=== PATIENT | female | born 1955 | race Caucasian/White ===

== ENCOUNTER 2021-01-18 12:56 | Emergency (ER) | payer OTHER | END 2021-01-18 14:57 | disposition home or self-care (01) | LOC: JVIRT 12:56 | DX: Z20.822 Contact with and (suspected) exposure to COVID-19 (principal) | CPT/HCPCS: C9803; G2251-GT; U0003 ==

== ENCOUNTER 2021-01-21 12:56 | Emergency (ER) | payer OTHER | END 2021-01-21 13:23 | disposition home or self-care (01) | LOC: JVIRT 12:56 | DX: Z20.822 Contact with and (suspected) exposure to COVID-19 (principal) | CPT/HCPCS: C9803; G2251-GT; Q3014-GT; U0003 ==